=== PATIENT | male | born 1990 | race Caucasian/White ===

== ENCOUNTER 2022-12-06 10:35 | Outpatient (OUT) | payer OTHER, SELFPAY ==
--- NOTE | 2022-12-06 10:45 | US_ITS ---
[address] [address] Patient Name: MAGDALENO MARTIN MRN: [id number] date: 1990 Sex: M Assigned Patient Location: [place] Current Patient Location: Accession/Order Number: [id number] Exam Date: 12/06/2022 10:48 Report Date: 12/06/2022 16:00 At the request of: CHIQUIS GARCIA Procedure: US scrotum EXAM: US scrotum HISTORY: Mass Of Left Testicle N50.89 COMPARISON: None TECHNIQUE: Routine scrotal ultrasound performed FINDINGS: Complex left testicular mass which is hypoechoic and solid. It measures 1.9 x 1.7 cm. Testicular neoplasm is suspected. Right testicle is normal. Normal epididymal blood flow. No torsion. No significant hydrocele. US/US scrotum IMPRESSION: 1.9 x 1.7 cm complex solid left testicular mass suspicious for neoplasm. Electronically authenticated by: SCOT BROWNE Date: 12/06/2022 16:00
== END 2022-12-06 10:36 | disposition home or self-care (01) ==
LOC: US 10:39
PROVIDERS: PCP Internal Medicine; Visit Provider Internal Medicine
DX: N50.89 Other specified disorders of the male genital organs (principal)
CPT/HCPCS: 76870

== ENCOUNTER 2024-08-21 09:59 | Outpatient (OUT) | payer OTHER, SELFPAY ==
[2024-08-21 10:49] LABS: Erythrocyte Sedimentation Rate 3 mm/hr (<=15)
[2024-08-21 10:53] LABS: C Reactive Protein <0.50 mg/dL (<=0.50); TSH W/ REFLEX FT4 1.206 uIU/mL (0.358-3.740)
[2024-08-22 07:07] LABS: Vitamin B12 731 pg/mL (232-1245)
[2024-08-22 15:08] LABS: ANA Direct Positive (Negative); Anti-DNA (DS) Ab Qn 15 IU/mL (0-9); RNP Antibodies <0.2 AI (0.0-0.9); Sjogren's Anti-SS-A <0.2 AI (0.0-0.9); Sjogren's Anti-SS-B <0.2 AI (0.0-0.9)
== END 2024-08-21 10:00 | disposition home or self-care (01) ==
PROVIDERS: PCP Internal Medicine; Visit Provider Internal Medicine
DX: M62.81 Muscle weakness (generalized) (principal); R53.82 Chronic fatigue, unspecified; R20.8 Other disturbances of skin sensation
CPT/HCPCS: 36415; 82607; 82728; 82746; 84443; 85652; 86038; 86140; 86235; 86255

== ENCOUNTER 2024-08-25 15:58 | Outpatient (OUT) | payer OTHER, SELFPAY ==
[2024-08-25 16:31] LABS: Basophils Percent Auto 0.2 % (0.2-2.0); Eosinophils Absolute Auto 0.1 10^3/uL (0.0-0.7); Eosinophils Percent Auto 1.6 % (0.9-7.0); Hematocrit 44.6 % (42.0-54.0); Hemoglobin 16.1 g/dL (14.0-18.0); Immature Granulocytes Abs Auto 0.02 10^3/uL (0.00-0.03); Immature Granulocytes Pct Auto 0.2 % (0.0-0.5); Lymphocytes Absolute Auto 2.4 10^3/uL (1.2-3.8); Lymphocytes Percent Auto 29.9 % (20.5-60.0); Mean Corpuscular HGB Conc 36.1 g/dL (29.9-35.2); Mean Corpuscular Hemoglobin 31.4 pg (25.9-34.0); Mean Corpuscular Volume 87.1 fL (80.0-94.0); Mean Platelet Volume 8.4 fL (9.5-13.5); Monocytes Absolute Auto 0.5 10^3/uL (0.3-0.8); Monocytes Percent Auto 6.7 % (1.7-12.0); Neutrophils Absolute Auto 4.9 10^3/uL (1.4-6.5); Neutrophils Percent Auto 61.4 % (43.0-75.0); Platelet Count 226 10^3/uL (150-450); Red Blood Count 5.12 10^6/uL (4.70-6.10); Red Cell Distribution Width 11.3 % (11.0-15.0); White Blood Count 8.1 10^3/uL (4.0-11.0)
[2024-08-25 16:58] LABS: Percent Iron Saturation 26.4 %
== END 2024-08-25 15:59 | disposition home or self-care (01) ==
PROVIDERS: PCP Internal Medicine; Visit Provider Internal Medicine
DX: R79.89 Other specified abnormal findings of blood chemistry (principal)
CPT/HCPCS: 36415; 82728; 83540; 83550; 85025

== ENCOUNTER 2024-11-15 08:05 | Outpatient (OUT) | payer OTHER, SELFPAY ==
[2024-11-15 09:02] LABS: Creatine Kinase 202 U/L (39-308)
== END 2024-11-15 08:06 | disposition home or self-care (01) ==
LOC: LAB 08:06
PROVIDERS: PCP Internal Medicine; Visit Provider Internal Medicine
DX: M62.81 Muscle weakness (generalized) (principal); R53.83 Other fatigue; R76.0 Raised antibody titer; R68.89 Other general symptoms and signs
CPT/HCPCS: 36415; 82550; 86038; 86140; 86225; 86235; 86618

== ENCOUNTER 2025-03-07 09:22 | Outpatient (OUT) | payer OTHER, SELFPAY ==
--- OUTSIDE RECORDS SUMMARY | 2013-03-08 03:21 | XMS_ITS | Continuity of Care Document ---
Author Organization [facility] Address [address] [address] Phone Care Team Providers Care Crown Blocker Name Role Phone Jigar Au DO Unavailable Unavailable Medications Medication Instructions Dosage Effective Dates (start - stop) Status Comments Medrol (Phi) 4 mg tablets in a dose pack take by Oral route as directed Not Available - Active [place] 5 mg-325 mg tablet take 1 tablet by oral route every 6 hours as needed for pain - Active Flexeril 10 mg tablet take 1 tablet (10MG) by oral route 3 times every day as needed - Active Bystolic 20 mg tablet take 1 tablet (20MG) by oral route every day 20 MG - Active sertraline 100 mg tablet take 1 tablet (100MG) by oral route every day 100 MG - Active Procedures Procedure Date Offic/outpt E&m [facility] 3 Services provided in an urgent care [facility] Advance Directives Directive Yes / No Effective Date File Name No Information Encounters Encounter Description Practice Location Reason(s) For Visit Diagnoses Date Provider Providers Copied on Encounter [facility], [address], [place], [id number], [place] tel:[phone] [facility] No Information 3 Roe Baires. [address] [place], [address], [place]. tel:[phone] Offic/outpt E&m [facility], [address], [place], [place], [id number], [place] tel:[phone] [facility] back pain (chief complaint) Lumbar spine strainSciatica 3 Kennedy Draper . [address] [place], [address], [place]. tel: [phone] Family History Family Member Type Diagnosis Age At Onset No Information Payers Payer name Insurance type Covered alliance party ID Authoriza tion(s) No Information Social History Type Description Quantity Date Captured Comments Sex Male Smoking Status No Information Chief Complaint And Reason For Visit No Information Reason For Referral Reason For Referral No Information History Of Present Illness Encounter Date Complaint History Of Prese nt Illness No Information Functional Status Date Functional Assessmen t No Information Instructions Date Instruction Additional Infor mation No Information Assessments Type Assessment Date No Information Patient Care Teams Name Effective Dates (start - stop) Status Members No Information
--- OUTSIDE RECORDS SUMMARY | 2025-03-07 09:26 | XMS_ITS | Clinical Summary ---
Author Organization [facility] Address [address] [place] [address] Care Team Providers Care Workforce Manager Name Role Phone Eddie Garsia DO Primary Care Provider [phone] Allergies No known active allergies Medications MedicationSigDispense QuantityRefillsLast FilledStart DateEnd DateStatus Fludrocortisone Acetate (FLORINEF PO) take 0.1 mg by mouth daily.Active SERTRALINE HCL PO take 100 mg by mouth daily.Active METOPROLOL SUCCINATE PO take 100 mg by mouth daily.Active BuPROPion HCl (WELLBUTRIN PO) take 300 mg by mouth daily.Active Active Problems ProblemNoted DateDiagnosed DatePOTS (postural orthostatic tachycardia syndrome) 02/03/2012 Overview (02/03/2012): Holter monitor 06/09/09 Normal sinus rhythm except for several episodes of symptomatic sinus tachycardia and one episode ofMobitz 1 second degree AV block. Echocardiogram 10/30/2008 Aortic valve morphology and function appears normal Aortic root and left atrium are normal size The mitral valve appears normal with 1+ MR Left ventricle is normal size with normal systolic motion-Estimated EF-60% Normal diastolic function noted Right atrium is normal size Tricuspid valve exhibits 1+ TR Right ventricular size and function appear normal Estimated RV pressure was 25 mmHg Pulmonic valve is not well seen No apparent pericardial effusion. Back pain01/26/2012 Social History Tobacco UseTypesPacks/DayYears UsedDateSmoking Tobacco: NeverSmokeless Tobacco: NeverAlcohol UseStandard Drinks/WeekCommentsNo0 (1 standard drink = 0.6 oz pure alcohol)Sex and Gender InformationValueDate RecordedSex Assigned at BirthNot on fileLegal AknDzcy9305/19/2012 7:23 PM ESTGender IdentityNot on fileSexual OrientationNot on file Last Filed Vital Signs Vital SignReadingTime TakenCommentsBlood Quvcwaxy388/6802/02/2012 10:09 AM EDT Sxeib206702/02/2012 10:06 AM YUBCrsowqiibtv76.6 ??C (97.9 ??F)01/26/2012 2:26 PM EDTRespiratory Iipy2868 10:06 AM EDTOxygen Lyeffxteex20%02/02/2012 10:06 AM EDTInhaled Oxygen Concentration--Icovwp753.4 kg (250 lb)02/02/2012 10:06 AM TGSNmdzwm247 cm (6' 2 )02/02/2012 10:06 AM EDTBody Mass Index32. 10:06 AM EDT Plan of Treatment Health MaintenanceDue DateLast DoneCommentsHEPATITIS C VIRUS ZKEDISJWN1992 QJYLLUE17 1990HIV SCREENING ZMKXTLRGLT28/28/2007HEP B VACCINE (1 of 3 - 19+ 3-dose series)2011TDAP (ADULT)2011HPV VACCINE (1 - 3-dose SCDM series)2019COVID-19 VACCINE ( - 2024- season)2024INFLUENZA VACCINE (#1)2024PNEUMOCOCCAL VACCINE SERIESAged OutNo longer eligible based on patient's age to complete this topic Insurance Care Teams Team MemberRelationshipSpecialtyStart DateEnd Date Eddie Garsia DO PCP - GeneralInternal Wittwqaa46/19/12
--- OUTSIDE RECORDS SUMMARY | 2025-03-07 09:26 | XMS_ITS | Clinical Summary ---
Author Organization [facility] [place] [address] Care Team Providers Care Technical Adjuster Name Role Phone Unavailable Primary Care Provider Unavailabl e Social History Tobacco UseTypesPacks/DayYears UsedDateSmoking Tobacco: Never AssessedSex and Gender InformationValueDate RecordedSex Assigned at BirthNot on fileLegal Sex Male04/04/2012 5:37 PM ESTGender IdentityNot on fileSexual OrientationNot on file Plan of Treatment Health MaintenanceDue DateLast DoneCommentsMMR (1 of 1 - Standard series) 1993Tetanus Diphtheria and Pertussis Vaccines (1 - Tdap)1999MenB (1 of 2 - MenB 2-Dose Series Bexsero)2008Hepatitis B (1 of 3 - 19+ 3-dose series)2011HPV (1 - 3-dose SCDM series)2019COVID-19 ( season)2024FLU (#1)12/15/2024HIBAged OutNo longer eligible based on patient's age to complete this topicHepatitis AAged OutNo longer eligible based on patient's age to complete this topicMenACWYAged OutNo longer eligible based on patient's age to complete this topicNirsevimabAged OutNo longer eligible based on patient's age to complete this topicPneumococcalAged OutNo longer eligible based on patient's age to complete this topicPolioAged OutNo longer eligible based on patient's age to complete this topicRotavirusAged OutNo longer eligible based on patient's age to complete this topic
--- OUTSIDE RECORDS SUMMARY | 2025-03-07 09:26 | XMS_ITS | Clinical Summary ---
Author Organization [facility] Address [facility] [place] [address] Care Team Providers Care Dance Critic Name Role Phone Eddie Garsia DO Primary Care Provider [phone] Myrna Belle STEEL FIXER.AUTOMOTIVE REFINISHER Unavailable [phone] Allergies No known active allergies Medications No known medications Active Problems No known active problems Encounters DateTypeDepartmentCare BhraGnsztpigpqs86/31/2025 2:40 PM EDTVisit (SP) Office Hematology/Oncology [address] [place] [address] Branden Valenzuela MD Malignant neoplasm of descended left testis (HCC) (Primary Dx)02/13/2025Travel 01/30/2025 1:03 PM EDT - 01/30/2025 11:59 PM EDTHospital Encounter Radiology Pet CT [address] [place] [address] Malignant neoplasm of left testis, unspecified whether descended or undescended (HCC) [C62.92] Discharge Disposition: Home01/30/20259184Vmmxpj37/29/2025 Patient Msg [facility] [address] [facility] [address] Provider, Ccf Financial Clearancefrom Last 3 Months Immunizations ImmunizationAdministration DatesNext DueHaemophilus influenzae b (Hib) vaccine, unspecified dlotbtcmrnt35/09/1994,1992,1992,1992diphtheria tetanus pertussis (DTP) xxzokha5409/17/1992,1992,1992diphtheria tetanus pertussis (DTaP) vaccine, unspecified urbdgskinyz02/29/1998,08/22/1993 hepatitis B (HepB) vaccine, 3-dose series, age 0 yr - 19 yr (ENGERIX B-PEDS, RECOMBIVAX HB-PEDS)04/11/1993,1992,1992measles mumps rubella (MMR) vaccine (M-M-R II, PRIORIX)09/11/1997,08/22/1993poliovirus (OPV) vaccine, trivalent, live, oral (ORIMUNE)09/11/1997,08/22/1993,1992,1992 tetanus diphtheria pertussis (Tdap) vaccine, age 7+ yr (ADACEL, BOOSTRIX) 10/08/2008 Family History Medical HistoryRelationCommentsKidney stonesBrotherHypertensionFatherKidney stonesMotherdiverticulitisMotherRelationStatusCommentsBrotherFatherMother Social History Tobacco UseTypesPacks/DayYears UsedDateSmoking Tobacco: NeverSmokeless Tobacco: Never Tobacco Cessation:Counseling Given: Not Answered Alcohol UseStandard Drinks/WeekCommentsNot Currently0 (1 standard drink = 0.6 oz pure alcohol)PHQ-2AnswerDate RecordedPHQ-2 qdama621/10/2024Area Deprivation IndexAnswerDate RecordedNational Score (1-100), lower number is lower risk89 03/29/2023State Score (1-10), lower number is lower zqke27305/30/2022ata from: https://www.neighborhoodatlas.[facility].edu/. Last address used for tjtazzttmfa[address]03/29/2023Sex and Gender InformationValueDate Recorded Sex Assigned at BirthNot on fileLegal OrwJosy3201/08/2023 8:45 AM EDTGender IdentityNot on fileSexual OrientationNot on file Last Filed Vital Signs Vital SignReadingTime TakenCommentsBlood Ztlrwcdj811/7910 2:47 PM EDT Lajos893302/13/2025 2:47 PM QPIRquiwissaqa20.2 ??C (97.2 ??F)02/13/2025 2:47 PM EDTRespiratory Xzbq3819 2:47 PM EDTOxygen Ofgglussbi38%02/13/2025 2:47 PM EDTInhaled Oxygen Concentration--Luimoc450.2 kg (260 lb 9.3 oz)02/13/2025 2:47 PM LRZPjipeh754.5 cm (6' 3 )07/17/2024 3:22 PM EDTBody Mass Index32.57 07/17/2024 3:22 PM EDT Plan of Treatment DateTypeDepartmentCare Team (Latest Contact Info)Apfenmabvgw62/30/2026 2:45 PM EDTOffice Visit [facility] [address] [place] [address] [place] [address] lab08/13/2025 3:00 PM EDTVisit (SP) Office Hematology/Oncology [address] [place] [address] [place] [address] Tc Castellanos MD [address] [place] [address] [place] [address] 6 month follow up ARLINE from Dr. Salazar MaintenanceDue DateLast DoneComments Anxiety Pysivdymx06/28/2010Depression Urayptzmc38/28/2010HIV Ullkgmfxg62/28/2010 Hepatitis C Gobqbbunl60/28/2010DTaP,Tdap,Td Vaccine (7 - Td or Tdap)10/08/2018 10/08/2008, 09/11/1997, 08/22/1993, Additional history existsHPV Vaccine (1 - 3- dose SCDM series)2019Covid-19 Vaccine ( season)2024 Influenza Vaccine (#1)2024Hepatitis B HvuqrauEyqhxfovu97/27/1993, 1992, 1992 Procedures Procedure NamePriorityDate/TimeAssociated DiagnosisCommentsCT CHEST W IVCON Zkaamwa4701/30/2025 2:20 PM EDT Malignant neoplasm of left testis, unspecified whether descended or undescended (HCC) CT ABD/PEL W CIQNGZjvtkfu70/17/2025 2:20 PM EDT Malignant neoplasm of left testis, unspecified whether descended or undescended (HCC) CBC + HULTTfkyace95/17/2025 1:05 PM EDT Malignant neoplasm of descended left testis (HCC) Malignant neoplasm of left testis, unspecified whether descended or undescended (HCC) COMPREHENSIVE METABOLIC ZVDWQQodnytw75/17/2025 1:05 PM EDT Malignant neoplasm of descended left testis (HCC) Malignant neoplasm of left testis, unspecified whether descended or undescended (HCC) BETA HCG QUANT TUMOR VWXHEADizoujn92/17/2025 1:05 PM EDT Malignant neoplasm of descended left testis (HCC) Malignant neoplasm of left testis, unspecified whether descended or undescended (HCC) ALPHA FETOPROTEIN MCCssmkzr76/17/2025 1:05 PM EDT Malignant neoplasm of descended left testis (HCC) Malignant neoplasm of left testis, unspecified whether descended or undescended (HCC) from Last 3 Months Results * CT ABD/PEL W IVCON (01/30/2025 2:20 PM EDT)Anatomical RegionLateralityModality AbdomenNuclear Medicine, Nuclear MedicineSpecimen (Source)Anatomical Location / LateralityCollection Method / VolumeCollection TimeReceived Time01/30/2025 2:20 PM EDT Impressions 01/31/2025 9:47 AM EDT IMPRESSION: 1. ??No evidence of metastatic disease in the abdomen or pelvis. Transcribe Date/Time: Jan 31 2025 ??9:37A Dictated by: JORGE ANDRADE MD This examination was interpreted and the report reviewed and electronically signed by: JORGE ANDRADE MD on Jan 31 2025 ??9:44AM ??EST Thank you for allowing us to participate in the care of your patient. Should there be any questions regarding this interpretation, please call [phone]. If you are unable to reach us at the number above, please feel free to contact [facility] at [phone]. Narrative 01/31/2025 9:47 AM EDT * * *Final Report* * * DATE OF EXAM: Jan 30 2025 ??2:20PM ?? [facility] ?? 0530 ??- ??CT ABD/PEL W IVCON ??/ PROCEDURE REASON: Malignant neoplasm of left testis, unspecified whether descended or undescended ? * * * * Physician Interpretation * * * * RESULT: EXAMINATION: ??CT ABDOMEN AND PELVIS WITH IV CONTRAST CLINICAL HISTORY: Testicular cancer. TECHNIQUE: CT of the abdomen and pelvis was performed using standard technique, scanning from just above the dome of the diaphragm to the symphysis pubis. MQ: ??CTAP_3 Contrast: IV: ??100 ml of Omnipaque 350 Oral: ??500 ml of Omni 240 10-25ml diluted with water CT Radiation dose: Integrated Dose-length product (DLP) for this visit = ?? 1553 mGy*cm. CT Dose Reduction Employed: Automated exposure control (AEC) COMPARISON: CT of the abdomen pelvis with contrast from 07/08/2024. RESULT: Liver: Probable hepatic steatosis. ??No hepatic mass detected. There is a stable area of geographic hypoattenuation segment 5 of the liver, likely representing an area of focal fatty filtration. Biliary: No bile duct dilation. ??The gallbladder is contracted which limits the evaluation. ??Within this limitation, no abnormalities detected. Spleen: No mass. No splenomegaly. Pancreas: No mass or duct dilation. Adrenals: No mass. Kidneys: Subcentimeter lesions that are too small to characterize but likely benign. GI tract: No dilation or wall thickening. Lymph nodes: No abdominal or pelvic lymphadenopathy. Mesentery/Peritoneum: No ascites or mass. Pelvis: No mass, ascites or fluid collection. Bones/Soft Tissues: Degenerative changes. Lower thorax: A chest CT performed will be reported separately. Localizer images: No additional findings. Procedure Note Provider, [facility] [place] - 01/31/2025 * * *Final Report* * * DATE OF EXAM: Jan 30 2025 2:20PM [facility] 0530 - CT ABD/PEL W IVCON / PROCEDURE REASON: Malignant neoplasm of left testis, unspecified whether descended or undescended * * * * Physician Interpretation * * * * RESULT: EXAMINATION: CT ABDOMEN AND PELVIS WITH IV CONTRAST CLINICAL HISTORY: Testicular cancer. TECHNIQUE: CT of the abdomen and pelvis was performed using standard technique, scanning from just above the dome of the diaphragm to the symphysis pubis. MQ: CTAP_3 Contrast: IV: 100 ml of Omnipaque 350 Oral: 500 ml of Omni 240 10-25ml diluted with water CT Radiation dose: Integrated Dose-length product (DLP) for this visit = 1553 mGy*cm. CT Dose Reduction Employed: Automated exposure control (AEC) COMPARISON: CT of the abdomen pelvis with contrast from 07/08/2024. RESULT: Liver: Probable hepatic steatosis. No hepatic mass detected. There is a stable area of geographic hypoattenuation segment 5 of the liver, likely representing an area of focal fatty filtration. Biliary: No bile duct dilation. The gallbladder is contracted which limits the evaluation. Within this limitation, no abnormalitiesdetected. Spleen: No mass. No splenomegaly. Pancreas: No mass or duct dilation. Adrenals: No mass. Kidneys: Subcentimeter lesions that are too small to characterize but likely benign. GI tract: No dilation or wall thickening. Lymph nodes: No abdominal or pelvic lymphadenopathy. Mesentery/Peritoneum: No ascites or mass. Pelvis: No mass, ascites or fluid collection. Bones/Soft Tissues: Degenerative changes. Lower thorax: A chest CT performed will be reported separately. Localizer images: No additional findings. IMPRESSION IMPRESSION: 1. No evidence of metastatic disease in the abdomen or pelvis. Transcribe Date/Time: Jan 31 2025 9:37A Dictated by: JORGE ANDRADE MD This examination was interpreted and the report reviewed and electronically signed by: JORGE ANDRADE MD on Jan 31 2025 9:44AM EST Thank you for allowing us to participate in the care of your patient. Should there be any questions regarding this interpretation, please call [phone]. If you are unable to reach us at the number above, please feel free to contact [facility] at [phone]. Authorizing ProviderResult TypeResult StatusHolly Yoshi GLEZ.CNPCT-PAMAFinal Result * CT CHEST W IVCON (01/30/2025 2:20 PM EDT)Anatomical RegionLateralityModality ChestNuclear Medicine, Nuclear MedicineSpecimen (Source)Anatomical Location / LateralityCollection Method / VolumeCollection TimeReceived Time01/30/2025 2:20 PM EDT Impressions 01/31/2025 9:55 AM EDT IMPRESSION: 1. ??No evidence of metastatic disease in the chest. Transcribe Date/Time: Jan 31 2025 ??9:45A Dictated by: JORGE ANDRADE MD This examination was interpreted and the report reviewed and electronically signed by: JORGE ANDRADE MD on Jan 31 2025 ??9:53AM ??EST Thank you for allowing us to participate in the care of your patient. Should there be any questions regarding this interpretation, please call [phone]. If you are unable to reach us at the number above, please feel free to contact [facility] at [phone]. Narrative 01/31/2025 9:55 AM EDT * * *Final Report* * * DATE OF EXAM: Jan 30 2025 ??2:20PM ?? [facility] ?? 0539 ??- ??CT CHEST W IVCON ??/ PROCEDURE REASON: Malignant neoplasm of left testis, unspecified whether descended or undescended ? * * * * Physician Interpretation * * * * RESULT: EXAMINATION: ??CHEST CT WITH CONTRAST CLINICAL HISTORY: Testicular cancer. Technique: ??Spiral CT acquisition of the chest from the thoracic inlet to the upper abdomen following IV contrast. MQ: ??CTCW_6 Contrast: ??100 mL Omnipaque [address] Radiation dose: Integrated Dose-length product (DLP) for this visit = ?? 1553 mGy*cm CT Dose Reduction Employed: Automated exposure control (AEC) Comparison: Chest CT with contrast from 07/08/2024 RESULT: Limitations: ??None. Lines, tubes, and devices: ??None. Lung parenchyma and airways: No consolidation. No suspicious pulmonary nodule. The central airways are patent. Pleural space: ??No pleural effusion. ??No pleural thickening. Lower neck, lymph nodes, and mediastinum: ??No significant axillary, mediastinal, or hilar lymphadenopathy. Heart, pericardium, and thoracic vessels: ??No pericardial effusion. ??No significant coronary artery calcification. Bones and soft tissues: ??No destructive bone lesion. Chest wall is unremarkable. Upper abdomen: ??A CT of the abdomen and pelvis was performed and will be reported separately. Localizer images: No additional findings. Procedure Note Provider, [facility] [place] - 01/31/2025 * * *Final Report* * * DATE OF EXAM: Jan 30 2025 2:20PM [facility] 0539 - CT CHEST W IVCON / PROCEDURE REASON: Malignant neoplasm of left testis, unspecified whether descended or undescended * * * * Physician Interpretation * * * * RESULT: EXAMINATION: CHEST CT WITH CONTRAST CLINICAL HISTORY: Testicular cancer. Technique: Spiral CT acquisition of the chest from the thoracic inlet to the upper abdomen following IV contrast. MQ: CTCW_6 Contrast: 100 mL Omnipaque [address] Radiation dose: Integrated Dose-length product (DLP) for this visit = 1553 mGy*cm CT Dose Reduction Employed: Automated exposure control (AEC) Comparison: Chest CT with contrast from 07/08/2024 RESULT: Limitations: None. Lines, tubes, and devices: None. Lung parenchyma and airways: No consolidation. No suspicious pulmonary nodule. The central airways are patent. Pleural space: No pleural effusion. No pleural thickening. Lower neck, lymph nodes, and mediastinum: No significant axillary, mediastinal, or hilar lymphadenopathy. Heart, pericardium, and thoracic vessels: No pericardial effusion. No significant coronary artery calcification. Bones and soft tissues: No destructive bone lesion. Chest wall is unremarkable. Upper abdomen: A CT of the abdomen and pelvis was performed and will be reported separately. Localizer images: No additional findings. IMPRESSION IMPRESSION: 1. No evidence of metastatic disease in the chest. Transcribe Date/Time: Jan 31 2025 9:45A Dictated by: JORGE ANDRADE MD This examination was interpreted and the report reviewed and electronically signed by: JORGE ANDRADE MD on Jan 31 2025 9:53AM EST Thank you for allowing us to participate in the care of your patient. Should there be any questions regarding this interpretation, please call [phone]. If you are unable to reach us at the number above, please feel free to contact [facility] at [phone]. Authorizing ProviderResult TypeResult StatusHolly Yoshi YUANCNPCT-PAMAFinal Result * BETA HCG QUANT TUMOR MARKER (01/30/2025 1:05 PM EDT)ComponentValueRef Range Test MethodAnalysis TimePerformed AtPathologist SignatureBeta hCG Quant Tumor Marker<10 - 3 IU/L1 7:52 PM EDTARUP LABORATORIESComment: INTERPRETIVE INFORMATION: Beta hCG, Serum Quantitation Tumor Marker Human chorionic gonadotropin (hCG) is a valuable aid in the management of patients with trophoblastic tumors, nonseminomatous testicular tumors and seminomas when used in conjunction with information available from the clinical evaluation and other diagnostic procedures. Increased serum HCG concentrations have also been observed in melanoma, carcinomas of the breast, gastrointestinal tract, lung, and ovaries, and in benign conditions, including cirrhosis, duodenal ulcer, and inflammatory bowel disease. This result cannot be interpreted as absolute evidence of the presence or absence of malignant disease. This result is not interpretable as a tumor marker in females. The combination of the specific monoclonal antibodies used in the Ayesha Beta HCG electrochemiluminescent immunoassay recognize the holo-hormone, nicked forms of hCG, the beta-core fragment, and the free beta-subunit. Results obtained with different test methods or kits cannot be used interchangeably. Although this assay is FDA cleared for use in the detection of , it is not labeled for use as a tumor marker. Access complete set of age- and/or gender-specific reference intervals for this test in the [employer] [facility] Test Directory ([employer]). This test was developed and its performance characteristics determined by [facility]. It has not been cleared or approved by the US Food and Drug Administration. This test was performed in a CLIA certified laboratory and is intended for clinical purposes. Performed By: [facility] [address] [place] [address] Portfolio Assistant: Dylan Gonzalez MD, PhD CLIA Number: [id number] Specimen (Source)Anatomical Location / LateralityCollection Method / Volume Collection TimeReceived TimeBloodBLOOD SPECIMEN / UnknownVenipuncture / Unknown 01/30/2025 1:05 PM EDT1 1:18 PM EDT Narrative Authorizing ProviderResult TypeResult StatusHolly Yoshi YUANCNPLABORATORY Final ResultPerforming OrganizationAddressCity/State/ZIP CodePhone Number [facility] [address] [place] [phone] * (ABNORMAL) COMPREHENSIVE METABOLIC PANEL (01/30/2025 1:05 PM EDT)Component ValueRef RangeTest MethodAnalysis TimePerformed AtPathologist Signature Protein, Total6.86.3 - 8.0 g/dL01/30/2025 2:01 PM EDTNORTHELEN [facility]OS [facility]DR[facility] LABAlbumin4.63.9 - 4.9 g/dL01/30/2025 2:01 PM EDTNORTRESEARCH MEDICAL CENTERST [facility] LABCalcium, Total9.78.5 - 10.2 mg/dL01/30/2025 2:01 PM EDTNOHAMPSHIRE MEMORIAL [facility]PITAL LABBilirubin, Total0.50.2 - 1.3 mg/dL 01/30/2025 2:01 PM EDTCABELL HUNTINGTON [facility] LABAlkaline Gtthmfkvzom1661 - 113 U/L1 2:01 PM EDTCABELL HUNTINGTON [facility]PITAL SOXMLF8194 - 40 U/L1 2:01 PM EDTNOHAMPSHIRE MEMORIAL [facility]OSPITAL DRKSKC1828 - 54 U/L1 2:01 PM EDBRAXTON COUNTY MEM[facility]IAL [facility] KQRZaryudt250(H)74 - 99 mg/dL01/30/2025 2:01 PM [facility] LABComment: The [place] Diabetes Association (ADA) provides guidance for cutoff values for fasting glucose andrandom glucose. The ADA defines fasting as no caloric intake for at least 8 hours. Fasting plasma glucose results between 100 to 125 mg/dL indicate increased risk for diabetes (prediabetes). Fasting plasma glucose results greater than or equal to 126 mg/dL meet the criteria for diagnosis of diabetes. In the absence of unequivocal hyperglycemia, results should be confirmed by repeat testing. In a patient with classic symptoms of hyperglycemia or hyperglycemic crisis, random plasma glucose results greater than or equal to 200 mg/dL meet the criteria for diagnosis of diabetes. Reference: Standards of Medical Care in Diabetes 2016, [place] Diabetes Association. Diabetes Care. 2016.39(Suppl 1). VKA292 - 24 mg/dL01/30/2025 2:01 PM EDTNOHAMPSHIRE MEMORIAL H[facility] LAB Creatinine1.030.73 - 1.22 mg/dL01/30/2025 2:01 PM EDTNORTHELEN [facility]OS [facility] BQFSmwbiw858827 - 144 mmol/L1 2:01 PM EDTCABELL HUNTINGTON [facility] LABPotassium3.93.7 - 5.1 mmol/L1 2:01 PM EDTNORTHELEN [facility] JFQMwelkrfr40970 - 107 mmol/L1 2:01 PM EDT [facility] LDGFL03958 - 30 mmol/L1 2:01 PM EDT [facility] LABAnion Zll303 - 15 mmol/L1 2:01 PM EDTNOHAMPSHIRE MEMORIAL [facility] LABEstimated Glomerular Filtration Rate99 >=60 mL/min/1.73m 01/30/2025 2:01 PM EDTCABELL HUNTINGTON [facility]OSPITAL LABComment:Estimated Glomerular Filtration Rate (eGFR) is calculated using the 2020 CKD-EPI creatinine equation. This equation utilizes serum creatinine, sex, and age as parameters. The creatinine assay has traceable calibration to isotope dilution- mass spectrometry. Refer to KDIGO guidelines for clinical interpretation. In patients with unstable renal function, e.g. those with acute kidney injury, the eGFRmay not accurately reflect actual GFR.Specimen (Source)Anatomical Location / LateralityCollection Method / VolumeCollection TimeReceived TimeBloodBLOOD SPECIMEN / UnknownVenipuncture / Baomlfl0801/30/2025 1:05 PM EDT1 1:18 PM EDT Narrative Authorizing ProviderResult TypeResult StatusHolly Yoshi YUANCNPLABORATORY Final ResultPerforming OrganizationAddressCity/State/ZIP CodePhone Number [facility] [address] [place] [address] * (ABNORMAL) COMPLETE BLOOD COUNT AND DIFFERENTIAL (01/30/2025 1:05 PM EDT) ComponentValueRef RangeTest MethodAnalysis TimePerformed AtPathologist SignatureWBC5.503.70 - 11.00 k/uL10/ 1:23 PM EDTNORTHELEN DEVOS [facility]ILDREN'[facility] LABRBC5.024.20 - 6.00 m/uL01/30/2025 1:23 PM EDTNOHAMPSHIRE MEMORIAL [facility] ZTQFnthuovvwj08.613.0 - 17.0 g/dL01/30/2025 1:23 PM EDT [facility] JVXEonjcjvahv48.139.0 - 51.0 %01/30/2025 1:23 PM EDTNORTHELEN [facility]OS [facility]DR[facility] VYLFDT03.880.0 - 100.0 fL 01/30/2025 1:23 PM EDTNOHAMPSHIRE MEMORIAL [facility] AEUDQM87.126.0 - 34.0 pg01/30/2025 1:23 PM EDTNOHAMPSHIRE MEMORIAL [facility]ITAL AZMJOEU46.430.5 - 36.0 g/dL01/30/2025 1:23 PM EDTCABELL HUNTINGTON [facility] LABRDW-CV11.4 (L)11.5 - 15.0 %01/30/2025 1:23 PM EDTNOHAMPSHIRE MEMORIAL [facility] LAB Platelet Cwawb879831 - 400 k/uL01/30/2025 1:23 PM EDTCABELL HUN[facility]INGTON [facility] LABMPV8.7(L)9.0 - 12.7 fL01/30/2025 1:23 PM EDTCABELL [facility]INGTON [facility] LABNeutrophils %58.2%01/30/2025 1:23 PM EDTCABELL HUN[facility]INGTON [facility] LABAbs Neut3.201.45 - 7.50 k/uL01/30/2025 1:23 PM EDT [facility] LABLymphocytes %33.6%01/30/2025 1:23 PM EDT [facility] LABAbs Lymph1.851.00 - 4.00 k/uL01/30/2025 1:23 PM EDTCABELL [facility] LABMonocytes %5.6%01/30/2025 1:23 PM EDTCABELL [facility] LABAbs Mono0.31<0.87 k/uL01/30/2025 1:23 PM EDBRAXTON COUNTY [facility] LABEosinophils %2.0%01/30/2025 1:23 PM EDTNOHAMPSHIRE MEMORIAL [facility] LABAbs Eosin0.11<0.46 k/uL 01/30/2025 1:23 PM EDTCABELL [facility]INGTON [facility] LABBasophils %0.4% 01/30/2025 1:23 PM EDTCABELL [facility]INGTON [facility] LABAbs Baso<0.03<0.11 k/uL01/30/2025 1:23 PM EDBRAXTON COUNTY [facility] LABImmature Granulocytes %0.2%01/30/2025 1:23 PM EDBRAXTON COUNTY [facility] LAB Abs Immature Gran<0.03<0.10 k/uL01/30/2025 1:23 PM EDBRAXTON COUNTY [facility] LABNRBC0.0/100 WBC01/30/2025 1:23 PM EDBRAXTON COUNTY [facility]OR[facility] LABAbsolute nRBC<0.01<0.01 k/uL01/30/2025 1:23 PM EDBRAXTON COUNTY [facility]ORIAL [facility] LABDiff OqsmHlhp69/17/2025 1:23 PM EDBRAXTON COUNTY MEMORIAL [facility] LABSpecimen (Source)Anatomical Location / Laterality Collection Method / VolumeCollection TimeReceived TimeBloodBLOOD SPECIMEN / UnknownVenipuncture / Rfxxzrt6701/30/2025 1:05 PM EDT1 1:18 PM EDT Narrative Authorizing ProviderResult TypeResult StatusHolly Yoshi YUANCNPLABORATORY Final ResultPerforming OrganizationAddressCity/State/ZIP CodePhone Number [facility] [address] [place] [address] * ALPHA FETOPROTEIN (01/30/2025 1:05 PM EDT)ComponentValueRef RangeTest Method Analysis TimePerformed AtPathologist SignatureAFP, Serum (Tumor Marker)4.26 <9.00 ng/mL01/31/2025 8:37 AM EDTCMCKITRICK HOSPITAL MAIN LABComment:The Alpha- Fetoprotein test was performed using the Brayden Unicel DxI immunoenzymatic assay. Results obtained with different assay methods or kits cannot be used interchangeably.Specimen (Source)Anatomical Location / LateralityCollection Method / VolumeCollection TimeReceived TimeBloodBLOOD SPECIMEN / Unknown Venipuncture / Yxrrsll6401/30/2025 1:05 PM EDT1 1:18 PM EDT Narrative [facility] - 01/31/2025 8:37 AM EDT The test is typically used as an aid in managing hepatocellular carcinoma and non-seminomatous testicular cancer when used in conjunction with physical examination, histology, and other clinical evaluation procedures. Normal levels of AFP do not entirely exclude the possibility of the above-mentioned conditions, other malignancies, and chronic liver diseases. The normal range has not been established for newborns. Authorizing ProviderResult TypeResult StatusHolly Yoshi YUANCNPLABORATORY Final ResultPerforming OrganizationAddressCity/State/ZIP CodePhone Number [facility] [address] [place] [address], from Last 3 Months Insurance Care Teams Team MemberRelationshipSpecialtyStart DateEnd Date Eddie Garsia DO [address] [place] [address] PCP - GeneralInternal Medicine06/28/23 Myrna Belle APRN.AUTOMOTIVE REFINISHER [address] [place] [address] [place] [address] Hematology/Oncology10/11/24
--- OUTSIDE RECORDS SUMMARY | 2025-03-07 09:26 | XMS_ITS | Clinical Summary ---
Author Organization [employer] [facility] tem Address [id number] [address] 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 Phone Eddie Garsia DO Primary Care Provider [phone] Social History Tobacco UseTypesPacks/DayYears UsedDateSmoking Tobacco: Never AssessedChildcare AnswerDate LrypsmxcBdeqmxhwkXxvgsgu16/12/2019EmploymentAnswerDate Recorded YbwjttuzgiUzbfzvd15/12/2019Sex and Gender InformationValueDate RecordedSex Assigned at BirthNot on fileLegal SlgQnhf7811/19/2014 11:46 AM EDTGender Identity Not on fileSexual OrientationNot on file Plan of Treatment Health MaintenanceDue DateLast DoneCommentsDepression Ghkiwwygm02/28/2004Tobacco Kizoleenn00/28/2004Adult BMI Nltzeeojx61/28/2010DTaP,Tdap and Td Vaccines (1 - Tdap)2011Influenza Hqetepw4712/15/2024 [employer] Not on file Insurance Care Teams Team MemberRelationshipSpecialtyStart DateEnd Date Eddie Garsia DO [address] [place] [address] [facility]
--- OUTSIDE RECORDS SUMMARY | 2025-03-07 09:26 | XMS_ITS | Clinical Summary ---
Author Organization [facility] 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
[2025-03-07 10:15] LABS: Hematocrit 44.3 % (42.0-54.0); Hemoglobin 15.6 g/dL (14.0-18.0); Immature Granulocytes Abs Auto 0.01 10^3/uL (0.00-0.03); Immature Granulocytes Pct Auto 0.2 % (0.0-0.5); Lymphocytes Absolute Auto 1.8 10^3/uL (1.2-3.8); Mean Corpuscular HGB Conc 35.2 g/dL (29.9-35.2); Mean Corpuscular Hemoglobin 31.1 pg (25.9-34.0); Mean Corpuscular Volume 88.4 fL (80.0-94.0); Platelet Count 218 10^3/uL (150-450); Red Blood Count 5.01 10^6/uL (4.70-6.10); White Blood Count 5.3 10^3/uL (4.0-11.0)
[2025-03-07 10:48] LABS: INR 0.97; Partial Thromboplastin Time 32.4 sec (22.3-36.2); Prothrombin Time 10.3 sec (9.0-11.6)
[2025-03-07 11:12] LABS: Alanine Aminotransferase 79 U/L (16-63); Albumin Globulin Ratio 1.3; Albumin Level 4.1 g/dL (3.4-5.0); Alkaline Phosphatase 64 U/L (46-116); Anion Gap 11.3; Aspartate Amino Transferase 36 U/L (15-37); Blood Urea Nitrogen 18.0 mg/dL (7.0-18.0); Calcium 9.2 mg/dL (8.5-10.1); Carbon Dioxide 26.8 mmol/L (21.0-32.0); Chloride 104 mmol/L (98-107); Creatine Kinase 213 U/L (39-308); Estimated GFR (African America >60 (>=60 mL/min/1.73m^2); Estimated GFR (Non-African Ame >60 (>=60 mL/min/1.73m^2); Globulin 3.1 g/dL; Glucose 96 mg/dL (74-106); Potassium 4.1 mmol/L (3.5-5.1); Sodium 138 mmol/L (136-145); Thyroid Stimulating Hormone 1.961 uIU/mL (0.358-3.740); Total Protein 7.2 g/dL (6.4-8.2)
[2025-03-07 11:15] LABS: Glucose Urine UA NEGATIVE (NEGATIVE)
[2025-03-07 12:54] LABS: Cast Seen? NONE SEEN #/LPF (NONE SEEN); Crystals Seen? None Seen #/HPF (None Seen)
[2025-03-08 14:07] LABS: Rapid Plasma Reagin, Quant Non Reactive titer (NonRea<1:1)
[2025-03-09 11:09] LABS: Anti-CCP Ab, IgG/IgA 8 units (0-19)
[2025-03-09 12:08] LABS: Anticardiolipin Ab,IgA,Qn <9 APL U/mL (0-11); Anticardiolipin Ab,IgG,Qn <9 GPL U/mL (0-14); Anticardiolipin Ab,IgM,Qn <9 MPL U/mL (0-12)
[2025-03-09 13:08] LABS: Beta-2 Glycoprotein I Ab, IgA <9 (0-25); Beta-2 Glycoprotein I Ab, IgG <9 (0-20); Beta-2 Glycoprotein I Ab, IgM <9 (0-32)
[2025-03-10 12:08] LABS: PTT-LA 36.0 sec (0.0-43.5); dRVVT Confirm 1.3 ratio (0.8-1.2)
[2025-03-10 16:10] LABS: Antinuclear Antibodies, IFA Negative (.)
== END 2025-03-07 09:23 | disposition home or self-care (01) ==
LOC: LAB 09:24
PROVIDERS: PCP Internal Medicine; Visit Provider Internal Medicine Rheumatology
DX: R76.0 Raised antibody titer (principal); M25.50 Pain in unspecified joint; M35.9 Systemic involvement of connective tissue, unspecified
CPT/HCPCS: 36415; 80053; 81001; 82550; 84439; 84443; 85025; 85610; 85652; 85730; 86015; 86038; 86140; 86146; 86147; 86160; 86162; 86200; 86225; 86235; 86376; 86381; 86431; 86592; 86800